=== PATIENT | female | born 1960 | race Caucasian/White ===

== ENCOUNTER → 2017-02-15 | Outpatient (CLI) | payer OTHER | LOC: LAB 14:07 | DX: E11.9 Type 2 diabetes mellitus without complications (principal) ==

== ENCOUNTER → 2017-07-31 | Outpatient (CLI) | payer OTHER ==
--- NOTE | 2017-08-02 13:39 | RADIOLOGY REPORT PS360 ---
DIG MAMM-SCREEN GUILLERMO W/CAD CAD Screening ORDERING PHYSICIAN : GARTH WOODS PATIENT AGE: 57 years GENDER: Female COMPARISON: Previous mammograms: August 2007, July 2016, 2014, 2013 2012 INDICATION: Routine screening 27-year-old with no hormones no new complaints at noncontributory family history TECHNIQUE: Standard CC and MLO images were obtained. R2 CAD reviewed. FINDINGS: RIGHT BREAST: Area of density superior right breast on MLO view appears to be a stable feature dating back to 2006 film screen mammogram. Also dissipates on the cc view with no persistent evidence of density or significant architectural distortion. Question Mild architectural irregularity but it appears stable on. LEFT BREAST: No new areas of concern on the left. IMPRESSION: Stable bilateral mammogram with no significant new findings. Area of asymmetric density superior right breast appears stable compared to multiple old studies. Also noted this feature Dissipate on cc view with no remarkable findings on cc . Follow up one year recommended and should be encouraged , Physical exam superior right breast as well as Self breast examination would be encouraged BI-RADS CATEGORY: 2_Benign stable features RECOMMENDED FOLLOWUP: 12M 12 MONTH FOLLOW-UP (A letter has been sent to the patient regarding results of the study.)
== END ==
LOC: RAD 08:26
DX: Z12.31 Encounter for screening mammogram for malignant neoplasm of breast (principal)
CPT/HCPCS: G0202

== ENCOUNTER → 2017-08-20 | Outpatient (CLI) | payer OTHER ==
--- NOTE | 2017-08-20 15:55 | RADIOLOGY REPORT PS360 ---
[id number] VIEWS HISTORY: LT. SHOULDER PAIN X 1 WEEK ORDERING PHYSICIAN: Les Alcaraz MD PATIENT AGE: 57 years COMPARISON: None FINDINGS: There are mild osteoarthritic changes involving the glenohumeral joint with minimal ridging along the inferior glenoid rim. There is some cortical irregularity of the greater tuberosity which may be seen with rotator cuff disease. No fracture or dislocation. No significant subcutaneous acromial narrowing. IMPRESSION: Minimal osteoarthritic change of the glenohumeral joint with mild cortical irregularity of the greater tuberosity which may be seen with rotator cuff disease
== END ==
LOC: RAD 13:46
DX: M25.512 Pain in left shoulder (principal)